=== PATIENT | female | born 1970 | race African-American/Black ===

== ENCOUNTER 2016-08-08 19:33 | Emergency (ER) | payer MEDICAID, OTHER ==
[~2016-08-08] VITALS: Ht 160 cm; Wt 133.0 kg
[~2016-08-08 19:33] MED LIST: ADVA115A INH; ALBU6.7H INH; ASPI81CH3 CHEW; CARV12.52 PO; CETI10 PO; FLUT50SP EACH NARE; GLUCOSE METER; LISI10TA3 PO; LOVA10TA PO; METF500T PO; METO25TA3 PO; NITR.3 SL; ONETTES4; SPIR25TA PO; TORS20TA PO; glucose strips
[2016-08-08 19:35] VITALS: BP 169/103; PULSE 87; RESP 16; TEMP 99.2; O2SAT 96
--- NOTE | 2016-08-08 20:22 | PD ---
Physical Exam Time Seen by Provider: 20:20 Narrative 46 y/o female presents with a few weeks of nausea, vomiting, diarrhea, abdominal /back pain vss Seen at triage desk. Awaiting bed placement. Data Data Last Documented VS Vital Signs Date Time Temp Pulse Resp B/P Pulse Ox O2 Delivery O2 Flow Rate FiO2 08/08/16 19:35 99.2 87 16 169/103 96 Room Air [facility] Medical Record Reviewed: Yes Supervised Visit with WILLIAM: Denzel Vogel August 08, 2016 20:22
[2016-08-08] MEDS ORDERED: SODIUM CHLOR 0.9% 1000 ML INJ 1,000 ML IV SCH (23:14)
[2016-08-08] MEDS ORDERED: ONDANSETRON HCL 4 MG/2 ML VIAL IVP ONE (23:15)
[2016-08-08] MEDS ORDERED: PANTOPRAZOLE SODIUM 40 MG VIAL IVP ONE (23:15)
[2016-08-08] MEDS ORDERED: SODIUM CHLORIDE 0.9% FLUSH 10 ML FLUSH IV FLUSH PRN (23:15)
[2016-08-08] MEDS ORDERED: FAMOTIDINE 20 MG/2 ML VIAL IV PUSH ONE (23:15)
[2016-08-08 23:38] LABS: BACTERIA, URINE RARE /hpf; BLOOD, URINE NEG (NEG); GLUCOSE,URINE NEG (NEG); KETONE, URINE NEG (NEG); MUCUS URINE FEW /lpf (OCC); NITRITE,URINE NEG (NEG); SQUAMOUS EPITHELIAL CELL URINE 1 /hpf (0-5); URINE COLOR YELLOW (YELLW/STRAW)
[2016-08-08 23:40] LABS: COMMENT (UR) CULT NOT INDICATED; CULTURE IF INDICATED CULT NOT INDICATED
[2016-08-08 23:54] LABS: AUTOMATED NEUTROPHIL # 5.9 TH/MM3 (1.8-7.7); BASOPHIL % 0.2 % (0.0-2.0); EOSINOPHIL # 0.1 TH/MM3 (0-0.4); EOSINOPHIL % 0.7 % (0.0-4.0); HEMATOCRIT 38.1 % (35.0-46.0); HEMO FLAGS DIFF FINAL; LYMPHOCYTE # 0.7 TH/MM3 (1.0-4.8); MEAN CORPUSCULAR HEMOGLOBIN 28.1 PG (27.0-34.0); MEAN CORPUSCULAR HGB CONC 32.6 % (32.0-36.0); NEUT % 81.1 % (16.0-70.0); PLATELET COUNT 257 TH/MM3 (150-450); RED BLOOD COUNT 4.43 MIL/MM3 (4.00-5.30); RED CELL DISTRIBUTION WIDTH 14.1 % (11.6-17.2); WHITE BLOOD COUNT 7.2 TH/MM3 (4.0-11.0)
--- NOTE | 2016-08-08 23:54 | PD ---
HPI Chief Complaint: GI Complaint Time Seen by Provider: 22:56 Travel History International Travel<30 days: No Contact w/Intl Traveler<30days: No Traveled to known affect area: No History of Present Illness HPI Patient is a 46-year-old female with history of diabetes, hypertension, gastroparesis, sleep apnea presents to emergency room with complaints of nausea , vomiting and diarrhea. Patient reports that she has been having these GI symptoms for the past 2 weeks, patient reports that she followed up with Dr. Tariq who ordered a NM gastric emptying study which she will get in the next week. Reports that she is did have a ct of her abdomen last monday and reports that she is still feeling nauseous and is vomiting. She is unable to eat or drink anything secondary to her symptoms. Patient reports any fevers or chills. Patient reports crampy abdominal pain diffusely. Patient denies any dysuria, urinary urgency or frequency. PFSH Past Medical History ?: Unknown LMP: 07/23/16 Social History Tobacco Use: No Allergies-Medications (Allergen,Severity, Reaction): Coded Allergies: No Known Allergies (Unverified , 08/08/16) Reported Meds & Prescriptions Reported Meds & Active Scripts Active Reglan (Metoclopramide HCl) 10 Mg Tab 10 Mg PO QID Onetouch Ultra Test Strips (Blood Glucose Test Strips) 1 Annika Annika 1 Strip .ROUTE MONTHLY [glucose strips] Strip .XX DAILY Fluticasone Nasal [place] 50 Mcg/Act Naspr 100 Mcg EACH NARE BID 50 mcg/spray Metformin (Metformin HCl) 500 Mg Tab 500 Mg PO BIDPC With meals [glucose meter] .XX DAILY Reported Aspirin 81 Low Dose (Aspirin) 81 Mg Chew 81 Mg CHEW DAILY Cetirizine (Cetirizine HCl) 10 Mg Tab 10 Mg PO DAILY Torsemide 20 Mg Tab 20 Mg PO DAILY Spironolactone 25 Mg Tab 25 Mg PO DAILY Nitrostat SL (Nitroglycerin) 0.3 Mg Subl 0.3 Mg SL DIRECTED PRN ONE TABLET UNDER THE TONGUE NEEDED FOR CHEST PAIN, MAY REPEAT EVERY FIVE MINUTES FOR A TOTAL OF 3 DOSES OR CALL 911 IF NO RELIEF Proventil Hfa 6.7 GM Inh (Albuterol Sulfate) 90 Mcg/Act Aer 2 Puff INH Q4-6H PRN Carvedilol 12.5 Mg Tab 12.5 Mg PO BID Lovastatin 10 Mg Tab 10 Mg PO DAILY Advair Hfa 12 GM Inh (Fluticasone-Salmeterol 12 GM Inh) 115-21 Mcg/Act Aer 2 Puff INH BID Metoprolol Tartrate 25 Mg Tab 25 Mg PO BID Lisinopril 10 Mg Tab 10 Mg PO BID Review of Systems General / Constitutional: No: Fever Eyes: No: Visual changes HENT: No: Headaches Cardiovascular: No: Chest Pain or Discomfort Respiratory: No: Shortness of Breath Gastrointestinal: Positive: Nausea, Vomiting, Diarrhea, Abdominal Pain Genitourinary: No: Dysuria Musculoskeletal: No: Pain Skin: No Rash Neurologic: No: Weakness Psychiatric: No: Depression Endocrine: No: Polydipsia Hematologic/Lymphatic: No: Easy Bruising Physical Exam Narrative GENERAL: nad, nontoxic SKIN: Focused skin assessment warm/dry. HEAD: Atraumatic. Normocephalic. EYES: Pupils equal and round. No scleral icterus. No injection or drainage. ENT: No nasal bleeding or discharge. Mucous membranes pink and moist. NECK: Trachea midline. No JVD. CARDIOVASCULAR: Regular rate and rhythm. No murmur appreciated. RESPIRATORY: No accessory muscle use. Clear to auscultation. Breath sounds equal bilaterally. GASTROINTESTINAL: Abdomen soft, non-tender, nondistended. Hepatic and splenic margins not palpable. MUSCULOSKELETAL: No obvious deformities. No clubbing. No cyanosis. No edema. NEUROLOGICAL: Awake and alert. No obvious cranial nerve deficits. Motor grossly within normal limits. Normal speech. PSYCHIATRIC: Appropriate mood and affect; insight and judgment normal. Data Data Last Documented VS Vital Signs Date Time Temp Pulse Resp B/P Pulse Ox O2 Delivery O2 Flow Rate FiO2 08/09/16 00:00 78 16 143/72 99 Room Air 08/08/16 19:35 99.2 Orders Urinalysis - C+S If Indicated (08/08/16 22:33) Ed Urine Pregnancytest Poc (08/08/16 22:33) Complete Blood Count With Diff (08/08/16 23:14) Comprehensive Metabolic Panel (08/08/16 23:14) Lipase (08/08/16 23:14) Prothrombin Time / Inr (Pt) (08/08/16 23:14) Act Partial Throm Time (Ptt) (08/08/16 23:14) Iv Access Insert/Monitor (5/1/17 23:14) Ondansetron Inj (Zofran Inj) (08/08/16 23:15) Pantoprazole Inj (Protonix Inj) (08/08/16 23:15) Sodium Chlor 0.9% 1000 Ml Inj (Ns 1000 M (08/08/16 23:14) Sodium Chloride 0.9% Flush (Ns Flush) (08/08/16 23:15) Famotidine Inj (Pepcid Inj) (08/08/16 23:15) Labs Laboratory Tests Test 08/08/16 08/08/16 22:55 23:35 Urine Color YELLOW Urine Turbidity CLEAR Urine pH 6.0 Urine Specific [place] 1.027 Urine Protein NEG mg/dL Urine Glucose (UA) NEG mg/dL Urine Ketones NEG mg/dL Urine Occult Blood NEG Urine Nitrite NEG Urine Bilirubin NEG Urine Urobilinogen LESS THAN 2.0 MG/DL Urine Leukocyte Esterase NEG Urine RBC 2 /hpf Urine WBC 1 /hpf Urine Squamous Epithelial 1 /hpf Cells Urine Bacteria RARE /hpf Urine Mucus FEW /lpf Microscopic Urinalysis Comment CULT NOT INDICATED White Blood Count 7.2 TH/MM3 Red Blood Count 4.43 MIL/MM3 Hemoglobin 12.4 GM/DL Hematocrit 38.1 % Mean Corpuscular Volume 86.0 FL Mean Corpuscular Hemoglobin 28.1 PG Mean Corpuscular Hemoglobin 32.6 % Concent Red Cell Distribution Width 14.1 % Platelet Count 257 TH/MM3 Mean Platelet Volume 8.1 FL Neutrophils (%) (Auto) 81.1 % Lymphocytes (%) (Auto) 10.0 % Monocytes (%) (Auto) 8.0 % Eosinophils (%) (Auto) 0.7 % Basophils (%) (Auto) 0.2 % Neutrophils # (Auto) 5.9 TH/MM3 Lymphocytes # (Auto) 0.7 TH/MM3 Monocytes # (Auto) 0.6 TH/MM3 Eosinophils # (Auto) 0.1 TH/MM3 Basophils # (Auto) 0.0 TH/MM3 CBC Comment DIFF FINAL Differential Comment Prothrombin Time 10.8 SEC Prothromb Time International 1.0 RATIO Ratio Activated Partial 27.3 SEC Thromboplast Time Sodium Level 138 MEQ/L Potassium Level 3.9 MEQ/L Chloride Level 104 MEQ/L Carbon Dioxide Level 25.6 MEQ/L Anion Gap 8 MEQ/L Blood Urea Nitrogen 11 MG/DL Creatinine 0.93 MG/DL Estimat Glomerular Filtration 79 ML/MIN Rate Random Glucose 110 MG/DL Calcium Level 8.4 MG/DL Total Bilirubin 0.6 MG/DL Aspartate Amino Transf 30 U/L (AST/SGOT) Alanine Aminotransferase 34 U/L (ALT/SGPT) Alkaline Phosphatase 76 U/L Total Protein 7.4 GM/DL Albumin 3.7 GM/DL Lipase 91 U/L MDM Medical Decision Making Medical Screen Exam Complete: Yes Emergency Medical Condition: Yes Interpretation(s) Vital Signs Date Time Temp Pulse Resp B/P Pulse Ox O2 Delivery O2 Flow Rate FiO2 08/08/16 19:35 99.2 87 16 169/103 96 Room Air Differential Diagnosis Gastritis, gastroparesis, electrolyte abnormality, gastric ulcer Narrative Course Patient is a 46-year-old female who presents to emergency room with complaints of nausea, vomiting, diarrhea. She does have history of gastroparesis and is currently being worked up by Dr. Anthony in the office. Patient reports that she had a ct of her abd/pelvis on 08/05/16 as she has been having increased nausea, vomiting and diarrhea. CT of her abd/pelvis showed no acute abnormality , hepatic steatosis, recurrent ventral hernia directly adjacent to the medial margin of the mesh from prior hernia repair. Patient reports that she does have a gastroparesis acting study next week. Patient here is she is still uncomfortable with nausea, vomiting and diarrhea. Her abdomen is uncomfortable , reports that this is how her stomach always feels. Patient reports that she feels dehydrated at this time. VS stable at this time. Patient nontoxic on evaluation. Abdomen is soft, nt/nd , no peritoneal signs. Plan to obtain lab work and give IVF and antiemetics. CBC & BMP Diagram 08/08/16 23:35 Patient re-evaluated. Patient feeling much better at this time. I reviewed all labs and studies with patient. Signs and symptoms of when to return to ER reviewed with patient. Patient thankful for care. Diagnosis Primary Impression: Nausea & vomiting Qualified Code: R11.2 - Non-intractable vomiting with nausea, unspecified vomiting type Patient Instructions: General Instructions Additional Instructions: Please follow up with Dr. Tariq as scheduled Return to ER as needed Return to ER if symptoms worsen or progress Please follow up for your gastric emptying studies Med/Other Pt SpecificInfo: Prescription(s) given Scripts Metoclopramide (Reglan)10 Mg Tab10 Mg PO QID #30 TAB Ref 0 Prov:Loretta Mcbride DO 08/09/16 Disposition: 01 DISCHARGE HOME Condition: Stable Loretta Mcbride DO August 08, 2016 23:54
[2016-08-09] VITALS: BP 143/72; PULSE 78; RESP 16; O2SAT 99
[2016-08-09 00:09] LABS: APTT (PATIENT) 27.3 SEC (24.3-30.1); PROTHROMBIN TIME - PATIENT 10.8 SEC (9.8-11.6)
[2016-08-09 00:16] LABS: ANION GAP 8 MEQ/L (5-15); AST (GOT) 30 U/L (15-37); BICARBONATE 25.6 MEQ/L (21.0-32.0); BLOOD UREA NITROGEN 11 MG/DL (7-18); CHLORIDE 104 MEQ/L (98-107); GLOMERULAR FILTRATION RATE 79 ML/MIN (>89); POTASSIUM 3.9 MEQ/L (3.5-5.1); SODIUM (NA) 138 MEQ/L (136-145)
[2016-08-09 00:19] LABS: ALKALINE PHOSPHATASE 76 U/L (45-117); ALT (GPT) 34 U/L (10-53); TOTAL BILIRUBIN ADULT 0.6 MG/DL (0.2-1.0)
[2016-08-09] MEDS ORDERED: REGL10TA5 PO (00:47)
[2016-09-19] MEDS ORDERED: ONETTES4 (13:22)
== END 2016-08-09 01:03 | disposition home or self-care (01) ==
LOC: NEPD 19:33
DX: R11.2 Nausea with vomiting, unspecified (principal); R19.7 Diarrhea, unspecified; R10.84 Generalized abdominal pain; E11.9 Type 2 diabetes mellitus without complications; I10 Essential (primary) hypertension; G47.30 Sleep apnea, unspecified; Z79.84 Long term (current) use of oral hypoglycemic drugs; Z87.19 Personal history of other diseases of the digestive system
CPT/HCPCS: 80053; 81001; 83690; 84703; 85025; 85610; 85730; 96374; 96375; 99284; C9113; J2405; J7030